=== PATIENT | male | born 1990 | race Caucasian/White ===

== ENCOUNTER 2017-02-02 09:13 | Emergency (ER) | payer OTHER ==
[~2017-02-02] VITALS: Ht 175.3 cm; Wt 86.4 kg
[2017-02-02 09:15] VITALS: Ht 175.3 cm; Wt 86.4 kg
[2017-02-02] MEDS ORDERED: KETOROLAC 15 MG INJ IV STA (09:31)
[2017-02-02] MEDS ORDERED: SOD CHLORIDE 0.9% 1,000 ML IV STA (09:31)
[2017-02-02 09:48] LABS: ADD SCAN DIFF NO
[2017-02-02 09:50] LABS: BASOPHIL # 0.1 10^3/ul (0.0-0.1); BASOPHILS % 0.8 % (0.0-2.0); EOSINOPHILS # 0.1 10^3/ul (0.0-0.5); EOSINOPHILS % 1.8 % (0.0-7.0); HEMATOCRIT 43.8 % (42.0-52.0); HEMOGLOBIN 14.6 g/dl (14.0-18.0); LYMPHOCYTES # 2.5 10^3/ul (0.8-2.9); LYMPHOCYTES % 32.3 % (15.0-51.0); MEAN CORPUSCULAR HGB CONC 33.3 g/dl (32.0-37.0); MEAN CORPUSCULAR VOLUME 90.1 fl (82.0-101.0); MEAN PLATELET VOLUME 10.3 fl (7.4-10.4); MONOCYTE # 0.7 10^3/ul (0.3-0.9); MONOCYTES % 8.6 % (0.0-11.0); NEUTROPHIL # 4.3 10^3/ul (1.6-7.5); PLATELET COUNT 243 10^3/UL (140-415); RED BLOOD COUNT 4.86 10^6/ul (4.70-6.10); RED CELL DISTRIBUTION WIDTH 12.4 % (11.5-14.5); WHITE BLOOD COUNT 7.7 10^3/ul (4.8-10.8)
[2017-02-02 10:00] LABS: ALBUMIN 4.7 g/dl (3.3-4.9); POTASSIUM 3.6 mmol/L (3.5-5.1)
[2017-02-02] MEDS ORDERED: LORAZEPAM 2 MG INJ IV ONE (10:00)
[2017-02-02 10:02] LABS: ALBUMIN/GLOBULIN RATIO 1.46; BILIRUBIN,INDIRECT 0.1 mg/dl (0-1.1); BILIRUBIN,TOTAL 0.1 mg/dl (0.2-1.3); CREATININE 1.04 mg/dl (0.61-1.24); TOTAL PROTEIN 7.9 g/dl (6.1-8.1)
[2017-02-02 10:03] LABS: CALCIUM 9.6 mg/dl (8.4-10.2)
[2017-02-02] MEDS ORDERED: CARI350T PO (10:38)
[2017-02-02] MEDS ORDERED: IBUP-1542 PO (10:38)
[2017-02-02 11:14] VITALS: BP 107/55; PULSE 81; RESP 18; TEMP 98.1
--- NOTE | 2017-02-03 09:24 | ERD ---
ER Documentation Chief Complaint Date/Time DATE: 02/03/17 TIME: 09:19 Chief Complaint BROUGHT IN VIA EMS FROM HOME DUE TO RIGHT LEG MUSCLE CRAMP HPI 27-year-old man complains of severe constant right anterolateral leg pain beginning during his soccer game. He denies direct injury to the leg, he had no falls and known kicked him or injured his leg. He denies previous episodes, denies falling, no chest pain or shortness of breath, no skin discoloration, no calf swelling. Patient denies using any medications or illicit drugs. ROS All systems reviewed and are negative except as per history of present illness. Medications Home Meds Active Scripts Carisoprodol* (Soma*) 350 Mg Tablet, 350 MG PO TID Y for MUSCLE SPASMS, #15 TAB Prov:HANDY GRUBER MD 02/02/17 Ibuprofen* (Motrin*) 600 Mg Tab, 600 MG PO Q8 for PAIN AND/OR INFLAMMATION, #30 TAB Prov:HANDY GRUBER MD 02/02/17 PMhx/Soc Denies Medical and Surgical Hx: pt denies Medical Hx, pt denies Surgical Hx Hx Alcohol Use: Yes Hx Substance Use: No Hx Tobacco Use: No Smoking Status: Never smoker FmHx Family History: No diabetes Physical Exam Vitals Vital Signs Date Time Temp Pulse Resp B/P Pulse Ox O2 Delivery O2 Flow Rate FiO2 02/02/17 11:14 98.1 81 18 107/55 Room Air 02/02/17 09:15 98.5 80 18 132/70 98 Physical Exam GENERAL: Well-developed, well-nourished, well-hydrated, in no apparent distress , looks nontoxic in appearance HEENT: Moist mucous membranes, pink conjunctiva, no cervical spine tenderness or step-off deformities, no goiter, no jaundice or icterus, extraocular movements intact without pain. No submandibular induration, and no pharyngeal erythema NEURO: Alert and oriented 3, cranial nerves II through XII intact bilaterally, pupils equal round reactive to light, no focal deficits or facial asymmetry, sensation intact distally Strength 5/5 in upper and lower extremities bilaterally CARDIAC: Regular rate and rhythm, no murmurs rubs or gallops LUNGS: Clear bilaterally no wheezing crackles or stridor ABDOMEN: Soft nontender, no guarding, no rigidity, no rebound, no psoas sign no obturator sign. Normoactive bowel sounds SKIN: Warm and dry to touch, no abrasions, contusions, or hematomas, no lacerations, no ecchymosis, no target lesions, and without ulcers EXTREMITIES: No clubbing cyanosis or edema, calves are bilaterally symmetrical, no Homans sign, no popliteal cord sign. Distal pulses equal and bilateral. Anterolateral legs appears symmetrical and there is no induration to the legs or skin discoloration. PSYCH: Normal affect without agitation or irritability Result Diagram: 02/02/1745 02/02/1745 Results 24 hrs Laboratory Tests Test 02/02/17 09:45 Alanine Aminotransferase (ALT/SGPT) 80IU/L Albumin 4.7g/dl Albumin/Globulin Ratio 1.46 Alkaline Phosphatase 69IU/L Anion Gap 21 Aspartate Amino Transf (AST/SGOT) 209IU/L Basophils # 0.110^3/ul Basophils % 0.8% Blood Urea Nitrogen 8mg/dl Calcium Level 9.6mg/dl Carbon Dioxide Level 26mmol/L Chloride Level 104mmol/L Creatinine 1.04mg/dl Direct Bilirubin 0.00mg/dl Eosinophils # 0.110^3/ul Eosinophils % 1.8% Globulin 3.20g/dl Glucose Level 91mg/dl Hematocrit 43.8% Hemoglobin 14.6g/dl Indirect Bilirubin 0.1mg/dl Lipase 84U/L Lymphocytes # 2.510^3/ul Lymphocytes % 32.3% Mean Corpuscular Hemoglobin 30.0pg Mean Corpuscular Hemoglobin Concent 33.3g/dl Mean Corpuscular Volume 90.1fl Mean Platelet Volume 10.3fl Monocytes # 0.710^3/ul Monocytes % 8.6% Neutrophils # 4.310^3/ul Neutrophils % 56.0% Nucleated Red Blood Cells # 0.010^3/ul Nucleated Red Blood Cells % 0.0/100WBC Platelet Count 33769^3/UL Potassium Level 3.6mmol/L Red Blood Count 4.8610^6/ul Red Cell Distribution Width 12.4% Sodium Level 147mmol/L Total Bilirubin 0.1mg/dl Total Protein 7.9g/dl White Blood Count 7.710^3/ul Current Medications Medications (Trade) Dose Ordered Sig/Iam Route PRN Reason Start Time Stop Time Status Last Admin Dose Admin Sodium Chloride (NS) 1,000 ml @ 1,000 mls/hr Q1H STAT IV 02/02/17 09:31 02/02/17 10:30 DC 02/02/17 09:47 Ketorolac Tromethamine (Toradol) 15 mg ONCE STAT IV 02/02/17 09:31 02/02/17 09:32 DC 02/02/17 09:47 Lorazepam (Ativan) 0.5 mg ONCE ONCE IV 02/02/17 10:00 02/02/17 10:01 DC 02/02/17 09:47 Procedures/MDM IV line was established patient was placed on director cardiac rhythm strip revealed a sinus rhythm at about 80 bpm with upright P and T waves. I administered 1 L normal saline intravenously, Toradol 15 mg IV, Lorazepam 0.5 mg IV with good response. CBC and electrolytes are normal, liver function tests were unremarkable except for a mild transaminitis. My suspicion is anterior tibial stress syndrome mostly to the right lower extremity, although calves appear soft and symmetrical and there is no Homans sign no popliteal cord sign. Distal pulses are palpable and bilaterally equal. Differential diagnoses considered, included but not limited to acute coronary syndrome, pulmonary embolism, aortic dissection, abdominal aortic aneurysm, sepsis, stroke, meningitis, encephalitis, pneumonia, appendicitis, cholecystitis , bowel obstruction, pyelonephritis, nephrolithiasis, cystitis, as well as metabolic, hematologic, and electrolyte abnormalities. As well as abscess, cellulitis, fractures, and dislocations. Patient feels much better at this time, and vital signs are normal, symptoms have improved. I did give strict instructions to return to the ED if symptoms continue or worsen, patient will otherwise follow-up with primary care physician. Patient understood instructions and agreed to plan. Departure Diagnosis: Primary Impression: Anterior tibial syndrome of right leg Condition: Good Patient Instructions: Carroll Splints HANDY GRUBER MD Feb 03, 2017 09:24
== END 2017-02-02 11:16 | disposition home or self-care (01) ==
LOC: E/R 09:13
DX: M76.811 Anterior tibial syndrome, right leg (principal)
CPT/HCPCS: 36415; 80053; 83690; 85025; 96374; 96375; J1885; J2060; J7030; Z7502